=== PATIENT | male | born 1970 | race Asian ===

== ENCOUNTER 2021-12-22 12:56 | Emergency (ER) | payer SELFPAY ==
[~2021-12-22] VITALS: Ht 182.9 cm; Wt 81.6 kg
[2021-12-22 12:56] VITALS: BP_SYST 157
--- NOTE | 2021-12-22 13:05 | NUR ---
PT BROUGHT BACK TO ROOM FROM TRIAGE. REPORT RECEIVED, CARE ASSUMED, PT ASSESSED. PT ATTACHED TO RESOLUTION ANALYST. EKG DONE
--- NOTE | 2021-12-22 13:06 | NUR ---
ER Dr. IRWIN at bedside examining patient.
--- NOTE | 2021-12-22 13:10 | NUR ---
# 20 gauge angiocath placed to . Use of asceptic technique. Opsite placed over site. Blood return noted. Blood for lab drawn from site. Flushed with 10 cc of normal saline. No evidence of infiltration noted. Patient tolerated well.
[2021-12-22 13:34] LABS: ANION GAP 8 (5-15); CALCIUM 8.7 mg/dL (8.4-11.0); CHLORIDE 105 mmol/L (98-107); CREATININE 0.98 mg/dL (0.55-1.30); GLUCOSE 102 mg/dL (70-99); POTASSIUM 4.6 mmol/L (3.5-5.1); UREA NITROGEN, BLOOD 23 mg/dL (8-21)
[2021-12-22 13:39] LABS: ALANINE AMINOTRANSFERASE 38 U/L (12-78); ALBUMIN 3.8 g/dL (3.4-4.8); ASPARTATE AMINOTRANSFERASE 21 U/L (10-37); TOTAL BILIRUBIN 0.2 mg/dL (0.0-1.0)
[2021-12-22 13:40] LABS: GFR AFRICAN AMERICAN 104 mL/min (>90)
--- NOTE | 2021-12-22 13:45 | NUR ---
CONSENT FOR CTA SIGNED, PT NOTED TO HAVE SHELLFISH ALLERGY, CALLED TO RADIOLOGY
[2021-12-22 13:47] LABS: BASOPHILS # (AUTO) 0.1 K/uL (0.0-0.2); BASOPHILS % (AUTO) 0.9 % (0.0-2.0); EOSINOPHILS # (AUTO) 0.1 K/uL (0.0-0.4); EOSINOPHILS % (AUTO) 2.3 % (0.0-4.0); HEMATOCRIT 41.9 % (36-54); HEMOGLOBIN 14.7 g/dL (14.0-18.0); LYMPHOCYTES # (AUTO) 1.5 K/uL (1.0-5.5); LYMPHOCYTES % (AUTO) 23.4 % (20.5-51.5); MEAN CORPUSCULAR HEMOGLOBIN 31 pg (27-31); MEAN CORPUSCULAR HGB CONC 35 % (32-36); MEAN CORPUSCULAR VOLUME 88 fL (79.0-98.0); MONOCYTES # (AUTO) 0.4 K/uL (0.0-1.0); NEUTROPHILS # (AUTO) 4.2 K/uL (1.8-7.7); NEUTROPHILS % (AUTO) 66.4 % (40.0-70.0); PLATELET COUNT (AUTO) 193 K/uL (130-430); RED BLOOD CELL COUNT(AUTO) 4.77 MIL/uL (4.2-6.2); RED CELL DISTRIBUTION WIDTH 13.5 % (9.0-15.0); WHITE BLOOD COUNT (AUTO) 6.4 K/uL (4.8-10.8)
[2021-12-22] MEDS ORDERED: iohexoL 350 mgI/mL, 100 ML INFUS..BTL IV ONE (13:52)
[2021-12-22] MEDS ORDERED: KETOROLAC TROMETHAMINE 15 MG VIAL IVP ONE (14:00)
--- NOTE | 2021-12-22 14:00 | NUR ---
PT TO CT VIA STRETCHER
--- NOTE | 2021-12-22 14:26 | NUR ---
PT BACK TO ROOM, MEDICATED FOR PAIN
--- NOTE | 2021-12-22 15:39 | NUR ---
PT RESTING QUIETLY, RESP EASY, MM PINK, STATES PAIN RELIEVED. NO APPARENT DISTRESS
[2021-12-22 16:19] VITALS: BP_SYST 128
--- NOTE | 2021-12-22 16:20 | NUR ---
PT SITTING IN BED NO CHANGE IN STATUS, RESP EASY MMPINK
[2021-12-22] MEDS ORDERED: ACET-2634 PO (17:24)
[2021-12-22] MEDS ORDERED: IBUP-1969 PO (17:24)
--- NOTE | 2021-12-22 17:33 | NUR ---
Patient given written and verbal discharge instructions and verbalizes understanding. ER MD discussed with patient the results and treatment provided. Patient in stable condition. ID arm band removed. Rx of TYLENOL, IBUPROFEN given. Patient educated on pain management and to follow up with PMD. Pain Scale 0/10. Opportunity for questions provided and answered. Medication side effect fact sheet provided.
== END 2021-12-22 17:33 | disposition home or self-care (01) ==
LOC: SED 12:56
DX: R07.9 Chest pain, unspecified (principal); M54.6 Pain in thoracic spine; I10 Essential (primary) hypertension; Z79.899 Other long term (current) drug therapy
CPT/HCPCS: 99285; 96374; 71275; 71045; 80053; 85025; 84484; 36415; 93005; 76376; Q9967; J1885; J7030